=== PATIENT | female | born 1950 | race Two or more races ===

== ENCOUNTER 2024-06-16 14:14 | Emergency (ER) | payer OTHER ==
[~2024-06-16] VITALS: Ht 165.1 cm; Wt 87.1 kg
[2024-06-16] MEDS ORDERED: METFORMIN HCL1000 M3 PO (14:37)
[2024-06-16] MEDS ORDERED: OZEMPIC0.25 MG/02 SQ (14:37)
[2024-06-16] MEDS ORDERED: KETOROLAC TROMETHAMINE 30 MG VIAL IM STA (16:48)
[2024-06-16] MEDS ORDERED: ORPHENADRINE CITRATE 30 MG/ML AMPUL IM STA (16:48)
== END 2024-06-16 17:20 | disposition home or self-care (01) ==
LOC: ER 14:16
DX: M54.32 Sciatica, left side (principal)
CPT/HCPCS: 96372; 99282; J1885; J2360